=== PATIENT | female | born 1990 ===

== ENCOUNTER 2020-11-16 11:18 | Inpatient (IN) ==
[2020-11-16] MEDS ORDERED: CITRIC ACID/SODIUM CITRATE 30 ML UDCUP PO ONE (11:59)
[2020-11-16] MEDS ORDERED: FAMOTIDINE 20 MG/2 ML VIAL IV ONE (11:59)
[2020-11-16] MEDS ORDERED: LACTATED RINGERS 1,000 ML IV SCH ×3 (12:00→21:30)
[2020-11-16] MEDS ORDERED: CLINDAMYCIN INJ 900 MG/50 ML PREMIX IV ONE (12:01)
[2020-11-16] MEDS ORDERED: OXYTOCIN/LR 20 UNIT/1,000 ML BAG IV ONE ×2 (12:02→15:53)
[2020-11-16] MEDS ORDERED: OXYTOCIN 10 UNIT/ML VIAL IM ONE (12:02)
[2020-11-16] MEDS ORDERED: OXYTOCIN/LR 30 UNIT/1,000 ML BAG IV ONE (12:02)
[2020-11-16 12:33] LABS: Basophils % 0.2 % (0.0-0.8); Eosinophils % 0.2 % (0.00-10.9); Hematocrit 31.5 VOL% (35.7-47.0); Hemoglobin 10.5 GM/DL (12.0-16.0); Immature Granulocytes % 0.7 %; Immature Granulocytes Absolute 0.06 #; Lymphocytes # 1.7 10*3/uL (1.4-4.0); Lymphocytes % 18.6 % (21.3-54.2); Mean Corpuscular HGB Conc 33.3 GM/DL (32-36); Mean Corpuscular Volume 91.6 FL (87-102); Mean Platelet Volume 11.8 FL (9.6-12.0); Monocytes % 4.1 % (1.7-12.7); Neutrophils % 76.2 % (38.7-73.9); Platelet Count 151 T/CUMM (130-400); Red Blood Count 3.44 MC/CUMM (3.8-5.5); Red Cell Distribution Width 13.8 % (9.3-17.3); White Blood Count 9.1 T/CUMM (4-12)
[2020-11-16] MEDS ORDERED: BUPIVACAINE SPINAL 0.75% 2 ML AMP SPINAL ONE (14:17)
[2020-11-16] MEDS ORDERED: ONDANSETRON 4 MG/2 ML VIAL ONE (14:17)
[2020-11-16] MEDS ORDERED: ACETAMINOPHEN INJ 1,000 MG/100 ML VIAL IV ONE (14:19)
[2020-11-16] MEDS ORDERED: DEXAMETHASONE 4 MG/1 ML VIAL ONE (14:19)
[2020-11-16] MEDS ORDERED: KETOROLAC 30 MG/1 ML VIAL ONE (14:19)
[2020-11-16] MEDS ORDERED: LACTATED RINGERS 1,000 ML IV ONE (14:59)
[2020-11-16 15:29] LABS: Cord Arterial Blood HCO3 25.2 MMOL/L
[2020-11-16 15:31] LABS: Cord Venous Blood HCO3 22.2 MMOL/L; Cord Venous Blood PCO2 52.2 MMHG; Cord Venous Blood PO2 28.4
[2020-11-16 15:44] LABS: Bacteria,Urine Many /HPF (Few); Bilirubin,Urine Negative (Negative); Blood, Urine Negative (Negative); Glucose,Urine (UA) Negative (Negative); Ketones,Urine Negative (Negative); Mucus,Urine Occasional /LPF (Occasional); Nitrite,Urine Negative (Negative); Protein,Urine Negative; RBC,Urine 1 /HPF (0-4); Squamous Epithelial Cell,Urine Occasional /HPF (0-10); Urine Appearance CLEAR (Clear); Urine Color Yellow (Yellow); Urine Specific Gravity 1.013 (1.001-1.035); Urine Urobilinogen < 2.0 EU/DL (0.2-1.0)
[2020-11-16] MEDS ORDERED: ONDANSETRON 4 MG/2 ML VIAL IV PRN (15:53)
[2020-11-16] MEDS ORDERED: GLUCAGON 1 MG VIAL IM PRN (15:53)
[2020-11-16] MEDS ORDERED: DEXTROSE 50% 25 GM/50 ML VIAL IV PRN (15:53)
[2020-11-16] MEDS ORDERED: RHO(D) IMMUNE GLOBULIN 300 MCG SYRINGE IM ONE (15:53)
[2020-11-16] MEDS ORDERED: ACETAMINOPHEN 325 MG TABLET PO PRN (15:53)
[2020-11-16] MEDS ORDERED: SIMETHICONE CHEW 80 MG TABLET PO PRN (15:53)
[2020-11-16] MEDS: DOCUSATE SODIUM 100 MG CAPSULE PO SCH (20:16)
[2020-11-16] MEDS: KETOROLAC 30 MG/1 ML VIAL IV SCH (20:58)
[2020-11-16] MEDS: ACETAMINOPHEN 500 MG TABLET PO SCH (21:08)
[2020-11-16] MEDS: CLINDAMYCIN INJ 900 MG/50 ML PREMIX IV SCH (22:05)
[2020-11-16 23:20] LABS: Basophils % 0.2 % (0.0-0.8); Hematocrit 31.4 VOL% (35.7-47.0); Hemoglobin 9.8 GM/DL (12.0-16.0); Immature Granulocytes % 0.7 %; Immature Granulocytes Absolute 0.08 #; Lymphocytes # 1.6 10*3/uL (1.4-4.0); Lymphocytes % 14.2 % (21.3-54.2); Mean Corpuscular HGB Conc 31.2 GM/DL (32-36); Mean Corpuscular Volume 94.6 FL (87-102); Mean Platelet Volume 12.4 FL (9.6-12.0); Monocytes % 3.3 % (1.7-12.7); Neutrophils % 81.6 % (38.7-73.9); Platelet Count 149 T/CUMM (130-400); Red Blood Count 3.32 MC/CUMM (3.8-5.5); Red Cell Distribution Width 13.4 % (9.3-17.3); White Blood Count 11.4 T/CUMM (4-12)
[2020-11-17] MEDS: KETOROLAC 30 MG/1 ML VIAL IV SCH ×2 (02:44→08:50)
[2020-11-17] MEDS: ACETAMINOPHEN 500 MG TABLET PO SCH (05:28)
[2020-11-17 05:49] LABS: Basophils % 0.2 % (0.0-0.8); Eosinophils % 0.1 % (0.00-10.9); Hematocrit 26.7 VOL% (35.7-47.0); Hemoglobin 8.4 GM/DL (12.0-16.0); Immature Granulocytes % 0.5 %; Immature Granulocytes Absolute 0.05 #; Lymphocytes # 2.1 10*3/uL (1.4-4.0); Mean Corpuscular HGB Conc 31.5 GM/DL (32-36); Mean Corpuscular Volume 93.7 FL (87-102); Mean Platelet Volume 12.8 FL (9.6-12.0); Monocytes % 5.3 % (1.7-12.7); Neutrophils % 70.9 % (38.7-73.9); Platelet Count 128 T/CUMM (130-400); Red Blood Count 2.85 MC/CUMM (3.8-5.5); Red Cell Distribution Width 13.4 % (9.3-17.3); White Blood Count 9.2 T/CUMM (4-12)
[2020-11-17] MEDS: CLINDAMYCIN INJ 900 MG/50 ML PREMIX IV SCH (06:00)
[2020-11-17] MEDS: METOCLOPRAMIDE 10 MG TABLET PO SCH ×2 (08:10→17:55)
[2020-11-17] MEDS: metFORMIN 500 MG TABLET PO SCH ×2 (08:46→17:35)
[2020-11-17] MEDS: FERROUS SULFATE 325 MG TABLET PO SCH ×2 (09:04→20:40)
[2020-11-17] MEDS: DOCUSATE SODIUM 100 MG CAPSULE PO SCH ×2 (09:04→20:40)
[2020-11-17] MEDS: glyBURIDE 2.5 MG TABLET PO SCH ×2 (11:25→17:35)
[2020-11-17] MEDS: MAGNESIUM HYDROXIDE SUSP 30 ML UDCUP PO PRN (20:40)
[2020-11-17] MEDS: IBUPROFEN 800 MG TABLET PO PRN (20:40)
[2020-11-18] MEDS: METOCLOPRAMIDE 10 MG TABLET PO SCH ×3 (00:36→16:50)
[2020-11-18] MEDS: IBUPROFEN 800 MG TABLET PO PRN ×3 (07:40→23:38)
[2020-11-18] MEDS: metFORMIN 500 MG TABLET PO SCH ×2 (07:45→16:56)
[2020-11-18] MEDS: glyBURIDE 2.5 MG TABLET PO SCH ×2 (07:45→16:57)
[2020-11-18] MEDS: DOCUSATE SODIUM 100 MG CAPSULE PO SCH ×2 (09:11→21:21)
[2020-11-18] MEDS: FERROUS SULFATE 325 MG TABLET PO SCH ×2 (09:12→21:21)
[2020-11-18] MEDS: MULTIVITAMIN (PRENATAL) TABLET PO SCH (09:25)
[2020-11-19] MEDS: DOCUSATE SODIUM 100 MG CAPSULE PO SCH ×3 (08:10→21:39)
[2020-11-19] MEDS: FERROUS SULFATE 325 MG TABLET PO SCH ×3 (08:11→21:40)
[2020-11-19] MEDS: metFORMIN 500 MG TABLET PO SCH ×2 (08:11→17:36)
[2020-11-19] MEDS: MULTIVITAMIN (PRENATAL) TABLET PO SCH (08:11)
[2020-11-19] MEDS: glyBURIDE 2.5 MG TABLET PO SCH ×2 (08:40→17:00)
[2020-11-19] MEDS: METOCLOPRAMIDE 10 MG TABLET PO SCH ×3 (10:23→18:38)
[2020-11-20] MEDS: IBUPROFEN 800 MG TABLET PO PRN (00:06)
[2020-11-20] MEDS: METOCLOPRAMIDE 10 MG TABLET PO SCH ×2 (00:20→09:12)
[2020-11-20 07:59] VITALS: BP 141/82
[2020-11-20] MEDS: MAGNESIUM HYDROXIDE SUSP 30 ML UDCUP PO PRN (09:12)
[2020-11-20] MEDS: FERROUS SULFATE 325 MG TABLET PO SCH (09:14)
[2020-11-20] MEDS: DOCUSATE SODIUM 100 MG CAPSULE PO SCH (09:14)
[2020-11-20] MEDS: metFORMIN 500 MG TABLET PO SCH (09:14)
[2020-11-20] MEDS: glyBURIDE 2.5 MG TABLET PO SCH (09:15)
== END 2020-11-20 13:00 | disposition home or self-care (01) | DRG 788 ==
LOC: N.LDOUT 11:18 → N.LD 11:20 → N.OB 18:29
PROVIDERS: ADMIT Obstetrics & Gynecology; ATTEND Obstetrics & Gynecology
PROC: LDCSECT (ICD-10-PCS; 2020-11-16 14:55)